=== PATIENT | female | born 1980 | race Caucasian/White ===

== ENCOUNTER 2025-01-13 09:50 | Emergency (ER) | payer BC ==
[~2025-01-13] VITALS: Ht 162.6 cm; Wt 63.5 kg
[2025-01-13] MEDS: IV NS 0.9% 1,000 ML BAG IV ONE (10:16)
[2025-01-13 10:20] LABS: PLATELET COUNT (AUTO) 473 K/uL (150-450); RED BLOOD CELL COUNT(AUTO) 3.83 MIL/uL (4.0-5.2); RED CELL DISTRIBUTION WIDTH 17.1 % (11.5-15.0); WHITE BLOOD COUNT (AUTO) 5.0 K/uL (4.3-11.0)
[2025-01-13 10:29] LABS: CALCIUM, SERUM 8.4 mg/dL (8.5-10.1); CREATININE 0.9 mg/dL (0.6-1.3); SODIUM SERUM 140.0 mmol/L (136-145); UREA NITROGEN, BLOOD 12.0 mg/dL (7-18)
[2025-01-13 11:41] VITALS: BP 105/60; TEMP 98.5; O2SAT 99
== END 2025-01-13 11:42 | disposition home or self-care (01) ==
LOC: ER 09:55
DX: E86.0 Dehydration (principal); R42 Dizziness and giddiness; F15.90 Other stimulant use, unspecified, uncomplicated; R10.2 Pelvic and perineal pain
CPT/HCPCS: 99284; 96360; 93005; 85025; 80048; 36415; 84702; J7030 ×2

== ENCOUNTER 2025-01-18 16:37 | Emergency (ER) | payer BC ==
[~2025-01-18] VITALS: Ht 165.1 cm; Wt 61.9 kg
[2025-01-18] MEDS ORDERED: KETOROLAC TROMETHAMINE 15 MG/ML VIAL IV ONE (17:30)
[2025-01-18] MEDS ORDERED: IV NS 0.9% 1,000 ML BAG IV ONE (17:30)
[2025-01-18] MEDS ORDERED: ONDANSETRON HCL/PF 4 MG/2 ML VIAL IVP ONE (17:30)
[2025-01-18 18:22] LABS: APPEARANCE,URINE CLEAR (CLEAR); BLOOD, URINE 3+ Ery/uL (NEGATIVE); LEUKOCYTE ESTERASE ,URINE NEGATIVE (NEGATIVE); NITRITE, URINE NEGATIVE (NEGATIVE); UGLUCOSE NEGATIVE (NEGATIVE)
[2025-01-18 18:23] LABS: PREGNANCY TEST URINE QUAL NEGATIVE (NEGATIVE)
[2025-01-18 18:26] LABS: ADD URINE CULTURE NO
[2025-01-18] MEDS ORDERED: IBUPROFEN 400 MG TABLET ONE (18:35)
[2025-01-18] MEDS ORDERED: ONDANSETRON 4 MG TAB.RAPDIS ONE (18:35)
[2025-01-18] MEDS: IBUPROFEN 400 MG TABLET PO ONE (18:38)
[2025-01-18] MEDS: ONDANSETRON 4 MG TAB.RAPDIS SL ONE (18:39)
[2025-01-18 19:08] VITALS: BP 127/76; TEMP 98.7; O2SAT 100
== END 2025-01-18 19:09 | disposition home or self-care (01) ==
LOC: ER 16:37
DX: L29.9 Pruritus, unspecified (principal); R10.9 Unspecified abdominal pain
CPT/HCPCS: 99283; 84703; 81001; Q0163; Q0162